=== PATIENT | female | born 1995 | race Caucasian/White ===

== ENCOUNTER → 2018-10-04 | Outpatient (CLI) | payer BC, OTHER ==
--- NOTE | 2018-10-04 12:31 | RAD ---
Indication:Upper gastric pain for 3 weeks. TECHNIQUE: Grayscale, color Doppler and spectral waveform is of the abdomen obtained. COMPARISON:None FINDINGS: Visualized pancreas within normal limits. IVC within normal limits. No pericholecystic fluid or gallbladder wall thickening. Mobile gallstones noted. Main portal vein is patent with hepatopedal flow. CBD measures 4 mm in diameter and is within normal limits. Liver measures 18 cm in longest dimension and is mildly enlarged. Right kidney measures 10.9 cm in length without hydronephrosis. IMPRESSION: Cholelithiasis without imaging evidence of acute cholecystitis. Electronically signed by: Elia Witt DO (10/04/2018 12:28 PM) [facility]
== END | disposition home or self-care (01) ==
LOC: US 09:35
PROVIDERS: ATTEND Obstetrics & Gynecology
DX: K80.20 Calculus of gallbladder without cholecystitis without obstruction (principal); R16.0 Hepatomegaly, not elsewhere classified
CPT/HCPCS: 76705